=== PATIENT | female | born 2000 | race Two or more races ===

== ENCOUNTER 2022-08-28 09:03 | Emergency (ER) | payer OTHER ==
[~2022-08-28] VITALS: Ht 154.9 cm; Wt 52.0 kg
[2022-08-28] MEDS ORDERED: IBU600T PO (09:30)
[2022-08-28] MEDS ORDERED: HYDROcodone-ACET 10/325MG TAB PO ONE (09:30)
[2022-08-28] MEDS ORDERED: CEPH-510 PO (09:30)
[2022-08-28] MEDS ORDERED: cefTRIAXone 1GM/50ML D5W 50 ML IV ONE (10:45)
[2022-08-28] MEDS ORDERED: ceFAZolin 1GM/50ML 50 ML IV ONE (11:15)
[2022-08-28] MEDS ORDERED: LIDOCAINE 1% HCL (LOCAL ANESTH.) INJ 20ML MDV ONE (11:36)
[2022-08-28] MEDS ORDERED: MORPHINE SULFATE 4 MG/ML SYR/VIAL IV ONE (11:45)
[2022-08-28] MEDS ORDERED: LIDOCAINE 1% HCL (LOCAL ANESTH.) INJ 20ML MDV ID ONE (11:45)
[2022-08-28] MEDS ORDERED: ONDANSETRON HCL 4 MG/2 ML VIAL IM ONE (11:45)
[2022-08-28] MEDS ORDERED: IBUPROFEN 600 MG TAB PO ONE (14:00)
[2022-08-28 14:30] VITALS: BP 140/83
== END 2022-08-28 14:35 | disposition home or self-care (01) ==
LOC: ER 09:03 → EDBD 09:03 → ER 14:35
DX: S62.620B Displaced fracture of middle phalanx of right index finger, initial encounter for open fracture (principal); Z79.1 Long term (current) use of non-steroidal anti-inflammatories (NSAID); Z79.899 Other long term (current) drug therapy; Z20.822 Contact with and (suspected) exposure to COVID-19; W23.0XXA Caught, crushed, jammed, or pinched between moving objects, initial encounter; Y93.89 Activity, other specified; Y92.89 Other specified places as the place of occurrence of the external cause; Y99.8 Other external cause status
CPT/HCPCS: 29130; 36415; 73200; 87426; 96365; 96367; 96372; 96375; 99285; J0690; J0696; J2001; J2270; J2405